=== PATIENT | female | born 1965 | race Caucasian/White ===

== ENCOUNTER → 2019-12-26 13:49 | Outpatient (BNVA) | payer OTHER, SELFPAY | PROVIDERS: PCP Nurse Practitioner Family; Referring Provider Nurse Practitioner Family; Visit Provider Nurse Practitioner | DX: Z76.89 Persons encountering health services in other specified circumstances (principal) ==

== ENCOUNTER 2020-03-06 06:15 | Day surgery (SDC) | payer OTHER, SELFPAY ==
[2020-03-06 06:41] VITALS: BMI 35.9
[2020-03-06 06:45] VITALS: BP 130/81; PULSE 90; RESP 16; TEMP 36.1; O2SAT 95
[2020-03-06] MEDS: Lactated Ringers 1,000 ML 50 ML IVCONT (07:00)
--- NOTE | 2020-03-06 07:16 | HO.ANESPROP2 ---
HPI - Anesthesia Eval Consult details Narrative: Colonoscopy PMFSH Family History Family History Father Family history of high blood pressure Hx of diabetes insipidus Mother No problems noted. Surgical History Surgical History History of colonoscopy Hx of endoscopy Hx of tubal ligation Social History Social History Alcohol intake: current Alcohol intake frequency: holidays/special occasions only Smoking Status: Never smoker Use of substances other than those prescribed or required for medical reasons: No Substance Use Type: Marijuana Advance Directives: No Advance Directives Information Provided: Yes Meds Allergies Allergy/AdvReac Type Severity Reaction Status Date / Time Latex Allergy Unknown Rash/Itchin Uncoded 05/14/19 00:00 ess Home Medications Medication Instructions Recorded Confirmed Type Zyrtec DAILY 03/06/20 History desvenlafaxine succinate 1 tab PO DAILY 03/06/20 03/06/20 History levothyroxine 1 tab PO QAM 03/06/20 03/06/20 History omeprazole 1 cap PO DAILY 03/06/20 03/06/20 History Exam Exam Date and Time: March 06, 2020 0716 Height,Weight and Vital Signs: Height 5 ft 1 in Weight 86.183 kg Last Vital Signs Temp 96.9 F 03/06/20 06:45 Pulse 90 03/06/20 06:45 Resp 16 03/06/20 06:45 BP 130/81 03/06/20 06:45 Pulse Ox 95 03/06/20 06:45 Airway Mallampati Class: III TM Dist: >3cm Neck ROM: Full Loose/Missing/Broken Teeth: No Heart: rrr+s1s2 Lungs: cta b/l Assessment and Plan Assessment Anesthesia Assessment: Anesthesia Plan Discussed and Chart Reviewed Final Anesthetic Review NPO: Yes ASA Class: II Final Preanesthetic Review: No Changes in Pt Med Stat, Meds/Allgs Chart Reviewed and Consent Obtained/Reviewed Patient Risk: Low Procedure Risk: Low Assessment/Block/Sedation in SS: Assess/Block/Sedation-SS Anesthetic Plan Anesthetic Plan: MAC: and Agree w/ Assess. and Plan Disposition: Standard PACU
--- NOTE | 2020-03-06 07:40 | MHC.SHP ---
Pre-Procedural Eval Section B Chief Complaint: Screening Details of Present Illness: colon cancer screening Relevant Family History (Specify if Yes): No Relevant Social History: None Present Medications: see Short Stay Collaborative assessment Medical History: Significant History (GERD, obesity, hypothyroid,anxiety depression) History of Previous Operations: Relevant previous surgery/procedure and date(s) (Bilateral tubal) Allergies: Allergies Allergy/AdvReac Type Severity Reaction Status Date / Time Latex Allergy Unknown Rash/Itchin Uncoded 05/14/19 00:00 ess Review of Systems Sugical H&P ROS: Negative: Constitution, Cardiovascular, Respiratory, Gastrointestinal and Musculoskeletal Exam Surgical H&P Exam: Normal: HEENT, Normal: Heart, Normal: Lungs, Normal: Abdomen and Normal: Skin Plan Diagnosis/Plan: Unchanged I have reviewed the history and physical and performed a pertinent physical examination on my patient. No changes have occurred unless specified.Yes
--- NOTE | 2020-03-06 08:08 | PM.PROC ---
Brief Operative Note Date of procedure: 03/06/20 Pre-op diagnosis: Colon cancer screening Post-op diagnosis: other (Normal exam) Procedure: colonoscopy Anesthesia: MAC (ANTIONE Berrios) Surgeon: Maegan Thomas Estimated blood loss (mL): 0 Pathology: none sent Condition: stable Disposition: PACU
[2020-03-06 08:11] VITALS: BP 97/61; PULSE 87; RESP 16; TEMP 37.1; O2SAT 97
[2020-03-06 08:26] VITALS: BP 113/77; PULSE 80; RESP 17; TEMP 36.7; O2SAT 99
--- NOTE | 2020-03-06 08:57 | HO.POSTANES ---
Post Anesthesia Evaluation Post Anesthesia Evaluation Vital Signs: Vital Signs Temp Pulse Resp BP Pulse Ox 03/06/20 08:26 98.0 F 80 17 113/77 99 03/06/20 08:11 98.8 F 87 16 97/61 97 03/06/20 06:45 96.9 F 90 16 130/81 95 Anesthesia: Monitored Mental Status: Awake Pain Control: Satisfactory Nausea/Vomiting: None Hydration: Adequate Anesthesia-Related Issues: No Anes. Related Issues
--- NOTE | 2020-03-06 09:11 | OP_ITS ---
SURGEON: Maegan Thomas MD PREOPERATIVE DIAGNOSIS: Screening, non-high risk, 10-year interval. POSTOPERATIVE DIAGNOSIS: Normal exam. PROCEDURE PERFORMED: Colonoscopy. ESTIMATED BLOOD LOSS: Non blood loss. COMPLICATIONS: No complications. ANESTHESIA: Monitored. ANESTHESIOLOGIST: Jose Berrios CRNA ASSISTANTS: No construction project assistant. SPECIMENS: Removed, none. PRIMARY CARE PHYSICIAN: Farhad Mendoza NP. FAMILY SERVICE AIDE: Dr. Thomas. CONDITION: Stable. DESCRIPTION OF PROCEDURE: Digital rectal exam revealed sphincter tone to be slightly decreased. Video colonoscope was introduced without difficulty. It was navigated into the rectosigmoid sigmoid on up through descending, transverse, ascending colon down into the cecal cap. Appendiceal orifice was seen. Ileocecal valve was seen. There was minimal residual bilious fluid that was easily flushed and suctioned. No fibrous material was left. Slow rotational views on withdrawal of the scope, no mucosal lesions were appreciated. Anorectal verge was clear. PLAN: Repeat colon cancer screening in this lady will be appropriate in 10 years. This will be asymptomatic. Note, this patient had done a 2-day prep, she did not tolerate the second dose of Suprep. GRAFT OR IMPLANTS: No grafts or implants. Maegan Thomas MD MEN/MODL / [id number] MTDD
== END 2020-03-06 08:56 | disposition home or self-care (01) ==
PROVIDERS: PCP Nurse Practitioner Family; Visit Provider Internal Medicine Gastroenterology
PROC: 0DJD8ZZ Inspection of Lower Intestinal Tract, Via Natural or Artificial Opening Endoscopic (ICD-10-PCS; CPT 45378; principal; 2020-03-06 07:30)
DX: Z12.11 Encounter for screening for malignant neoplasm of colon (principal); K21.9 Gastro-esophageal reflux disease without esophagitis; E03.9 Hypothyroidism, unspecified; Z79.899 Other long term (current) drug therapy; Z98.51 Tubal ligation status; F12.90 Cannabis use, unspecified, uncomplicated; Z91.040 Latex allergy status; F32.9 Major depressive disorder, single episode, unspecified
CPT/HCPCS: 45378

== ENCOUNTER 2022-06-09 08:16 | Outpatient (REF) | payer OTHER, SELFPAY ==
[2022-06-09 11:07] LABS: MANUAL DIFF FLAG NO
[2022-06-09 11:14] LABS: Basophils Absolute Auto 0.1 X10*3/uL (0.0-0.2); Basophils Percent Auto 0.7 % (0-2); Eosinophils Absolute Auto 0.4 X10*3/uL (0.0-0.4); Hematocrit 42.1 % (37.0-47.0); Hemoglobin 13.6 g/dl (12.0-16.0); Imm Gran Abs Auto 0.03 X10*3/uL (0.00-0.03); Imm Gran Pct Auto 0.4 % (0.0-0.4); Lymphocytes Absolute Auto 2.1 X10*3/uL (1.2-4.9); Lymphocytes Percent Auto 27.3 % (20-40); Mean Corpuscular HGB Conc 32.3 g/dl (31.0-35.0); Mean Corpuscular Volume 86.8 fL (80.0-98.0); Mean Platelet Volume 8.9 fL (9.4-12.3); Monocytes Absolute Auto 0.5 X10*3/uL (0.1-1.2); Monocytes Percent Auto 6.4 % (2-11); Neutrophils Absolute Auto 4.6 x10*3/uL (2.0-8.3); Neutrophils Percent Auto 60.2 % (45-73); Platelet Count 360 X10*3/uL (160-400); Red Blood Count 4.85 X10*6/uL (4.20-5.50); Red Cell Distribution Width 13.5 % (11.0-16.0); White Blood Count 7.7 X10*3/uL (4.8-10.8)
[2022-06-09 11:24] LABS: Appearance Urine Turbid; Color Urine Yellow; Glucose Urine UA Negative (Negative); Leukocyte Esterase Urine Negative (Negative); Nitrite Urine Negative (Negative); PH 5.5 (5.0-9.0); Specific Gravity - Urine >= 1.030 (1.005-1.025); Urine Blood Negative (Negative); Urine Ketones Negative (Negative); Urine Protein Negative (Neg-Trace)
[2022-06-09 11:46] LABS: Alanine Aminotransferase 40 U/L (0-31); Albumin Level 4.4 g/dL (3.5-5.0); Alkaline Phosphatase 122 U/L (39-117); Anion Gap 14 (12-20); Aspartate Amino Transferase 27 U/L (5-31); Bilirubin Total 0.4 mg/dL (0.0-1.0); Blood Urea Nitrogen 13 mg/dL (9-16); Calcium 9.6 mg/dL (8.4-10.2); Carbon Dioxide 28 mmol/L (22-29); Chloride 105 mmol/L (96-108); Cholesterol 260 mg/dL; Estimated Glomerular Filt Rate > 60; Glucose Fasting 88 mg/dL (60-99); HDL Cholesterol 40 mg/dL; LDL Cholesterol Calculated 186 mg/dl; Potassium 4.6 mmol/L (3.3-5.1); Sodium 142 mmol/L (135-145); Total Protein 7.3 g/dL (6.5-8.0); Triglycerides 171 mg/dL
[2022-06-09 11:47] LABS: TSH reflex Free T4 1.15 uIU/mL (0.32-4.0); Vitamin D 25-OH Total 64.1 ng/mL (>30)
== END 2022-06-09 08:17 | disposition home or self-care (01) ==
LOC: HO.HMGCLDS 08:16
PROVIDERS: PCP Nurse Practitioner Family; Visit Provider Nurse Practitioner Family
DX: Z00.00 Encounter for general adult medical examination without abnormal findings (principal); E55.9 Vitamin D deficiency, unspecified; R74.8 Abnormal levels of other serum enzymes; E03.9 Hypothyroidism, unspecified
CPT/HCPCS: 36415; 80053; 80061; 81003; 82306; 84443; 85025

== ENCOUNTER 2023-07-26 07:35 | Outpatient (REF) | payer OTHER, SELFPAY ==
[2023-07-26 10:31] LABS: MANUAL DIFF FLAG NO
[2023-07-26 10:47] LABS: Basophils Percent Auto 0.5 % (0-2); Eosinophils Absolute Auto 0.2 X10*3/uL (0.0-0.4); Hematocrit 40.5 % (37.0-47.0); Hemoglobin 13.4 g/dl (12.0-16.0); Imm Gran Abs Auto 0.01 X10*3/uL (0.00-0.03); Imm Gran Pct Auto 0.1 % (0.0-0.4); Lymphocytes Absolute Auto 1.9 X10*3/uL (1.2-4.9); Lymphocytes Percent Auto 24.7 % (20-40); Mean Corpuscular HGB Conc 33.1 g/dl (31.0-35.0); Mean Corpuscular Hemoglobin 28.6 pg (27.0-33.0); Mean Corpuscular Volume 86.5 fL (80.0-98.0); Mean Platelet Volume 9.4 fL (9.4-12.3); Monocytes Absolute Auto 0.5 X10*3/uL (0.1-1.2); Monocytes Percent Auto 6.9 % (2-11); Neutrophils Absolute Auto 4.9 x10*3/uL (2.0-8.3); Neutrophils Percent Auto 65.8 % (45-73); Platelet Count 378 X10*3/uL (160-400); Red Blood Count 4.68 X10*6/uL (4.20-5.50); Red Cell Distribution Width 13.9 % (11.0-16.0); White Blood Count 7.5 X10*3/uL (4.8-10.8)
[2023-07-26 11:44] LABS: Alanine Aminotransferase 29 U/L (0-31); Albumin Level 4.4 g/dL (3.5-5.0); Alkaline Phosphatase 120 U/L (39-117); Anion Gap 15 (12-20); Aspartate Amino Transferase 26 U/L (5-31); Bilirubin Total 0.4 mg/dL (0.0-1.0); Blood Urea Nitrogen 13 mg/dL (9-16); Calcium 10.1 mg/dL (8.4-10.2); Carbon Dioxide 28 mmol/L (22-29); Chloride 105 mmol/L (96-108); Cholesterol 267 mg/dL (<200); Estimated Glomerular Filt Rate > 60; Glucose Fasting 91 mg/dL (60-99); HDL Cholesterol 50 mg/dL (>40); LDL Cholesterol Calculated 193 mg/dL (<100); Potassium 4.7 mmol/L (3.3-5.1); Sodium 143 mmol/L (135-145); TSH reflex Free T4 0.59 uIU/mL (0.32-4.0); Total Protein 7.5 g/dL (6.5-8.0); Triglycerides 124 mg/dL (<150); Vitamin D 25-OH Total 80.3 ng/mL (>30)
[2023-07-30 05:44] LABS: Alk.Phos Iso. Macrohepatic 0 % (<=0); Alk.Phos Isoenzymes Bone 41 % (28-66); Alk.Phos Isoenzymes Intest 0 % (1-24); Alk.Phos Isoenzymes Liver 59 % (25-69); Alk.Phos Isoenzymes Placental 0 % (<=0); Alk.Phos Isoenzymes Total 113 U/L (37-153)
== END 2023-07-26 07:36 | disposition home or self-care (01) ==
LOC: HO.HMGCLDS 07:35
PROVIDERS: PCP Nurse Practitioner Family; Visit Provider Nurse Practitioner Family
DX: Z00.00 Encounter for general adult medical examination without abnormal findings (principal); R74.8 Abnormal levels of other serum enzymes; E55.9 Vitamin D deficiency, unspecified
CPT/HCPCS: 36415; 80053; 80061; 82306; 84080; 84443; 85025

== ENCOUNTER 2023-07-28 08:00 | Outpatient (AMB) | payer OTHER, SELFPAY ==
--- NOTE | 2023-07-28 08:07 | A.OFFPC_ITS ---
Vital Signs 07/28/23 08:09 Height 5 ft 1 in Weight 186 lb BMI 35.1 BP 110/74 Blood Pressure Location Rt brachial Position Sitting Pulse 96 Pulse Source Pulse Oximeter Pulse Oximetry (%) 98 Oxygen Delivery Method Room Air Intake Visit Reasons: Follow up meds Intake Note: Patient here to review recent labs. Allergies Latex Allergy (Unknown, Uncoded 07/28/23 08:10) Rash/Itchiness Medication List - Last Reconciled 07/28/23 by BRIANA Zhou atorvastatin 10 mg PO BEDTIME 90 days cholecalciferol (vitamin D3) 50 mcg PO DAILY desvenlafaxine succinate ER 1 tab PO DAILY levothyroxine 75 mcg PO QAM omeprazole 40 mg PO DAILY [Zyrtec DAILY] Tobacco use date assessed: 07/28/23 Dental Screening Dental Screen Date: 07/28/23 Did you have a dental visit in the last 12 months?: Yes Did you have a dental problem in the last 6 months where you did not have access to dental care?: No Was dental information given to patient?: Patient has dentist HPI Follow up meds HPI Details Dyslipidemia: Pt's last lipids were elevated. Will start atorvastatin 10mg. Hypothyroid: Stable, last TSH was WNL. Pt is taking levothyroxine 75mcg. Denies chest pain, shortness of breath, and dizziness. Pt will schedule her own mammogram. [facility] Medical History Left tubo-ovarian mass Surgical History Hx of tubal ligation Hx of endoscopy History of colonoscopy Family History Father Family history of high blood pressure Hx of diabetes insipidus Mother Substance use disorder Mental health disorder Sister Substance use disorder Mental health disorder Social History Housing: Apartment Alcohol intake: current Alcohol intake frequency: holidays/special occasions only Patient Tobacco Use Status: Never used Tobacco e-Cigarette/Vaping Use: Never Used Second Hand Smoke Exposure: No Substance Use Type: Marijuana service: No Current occupational status: employed Current occupation: [employer] Current occupational exposures/hazards: No Cognitive needs: No Hearing needs: No Vision needs: No Questionnaire PHQ-9 Over the last 2 weeks, how often have you been bothered by any of the following problems? 1. Little interest or pleasure in doing things: not at all 2. Feeling down, depressed, or hopeless: not at all 3. Trouble falling or staying asleep, or sleeping too much: several days 4. Feeling tired or having little energy: several days 5. Poor appetite or overeating: not at all 6. Feeling bad about yourself - or that you are a failure or have let yourself or your family down: not at all 7. Trouble concentrating on things, such as reading the newspaper or watching television: several days 8. Moving or speaking so slowly that other people could have noticed. Or the opposite - being so fidgety or restless that you have been moving around a lot more than usual: not at all 9. Thoughts that you would be better off or of hurting yourself in some way: not at all Total score: 3 Depression Screening Interpretation: Negative Depression Screening Done: Yes 91560 - PHQ-9 Billing: Yes Source: Developed by Drs. Andrew Wright, Marilee Welsh, Checo Sanchez and colleagues, with an educational justin from [employer]. Thrive Questionnaire Date Thrive assessed: 07/28/23 I am a: Patient What is your living situation today?: I have a steady place to live Within the past 12 months, did the food you bought not last and you didn't have the money to get more?: Never true Within the past 12 months, did you worry whether your food would run out before you got money to buy more?: Never true Do you have trouble paying for medicines?: Yes Do you have trouble getting transportation to medical appointments?: No Do you have trouble paying your heating and electricity bill?: No Do you have trouble taking care of your child, family member or friend?: No Do you have trouble with day-to-day activities such as bathing, preparing meals, shopping, managing finances, etc.?: No Are you currently unemployed and looking for a job?: No Are you interested in more education?: No Currently or been in a relationship where the following occur: I choose not to answer this question THRIVE Score: 0 AUDIT C Alcohol Use Questionnaire (AUDIT-C) 1. How often do you have a drink containing alcohol?: Monthly or less 2. How many drinks containing alcohol do you have on a typical day when you are drinking?: 1 or 2 3. How often do you have six or more drinks on one occasion?: Never Total Score: 1 Score Reviewed/Action Taken: No LUIS M-7 AMB Questionnaire LUIS M-7 Date LUIS M - 7 assessed: 07/28/23 Feeling nervous, anxious, or on edge: 1 = Several days Not being able to stop or control worryin = Not at all Worrying too much about different things: 0 = Not at all Trouble relaxin = Several days Being so restless that it is hard to sit still: 0 = Not at all Becoming easily annoyed or irritable: 1 = Several days Feeling afraid as if something awful might happen: 0 = Not at all Total LUIS M-7 score (0-4 normal; 5-9 mild; 10-14 moderate; 15-21 severe): 3 Source: Developed by Drs. Andrew Wright, Marilee Welsh, Checo Sanchez and colleagues, with an educational justin from [employer]. LUIS M-7 Assessment Billing LUIS M-7 Assessment Tool: LUIS M-7 Assessment 41517 Review of Systems Const Reports as per HPI Physical exam (Primary Care) Vital Signs: Last Vital Signs Pulse 96 07/28/23 08:09 BP 110/74 07/28/23 08:09 Pulse Ox 98 07/28/23 08:09 Oxygen Delivery Method Room Air 07/28/23 08:09 BMI result Body Mass Index 35.1 Tobacco/Smoking Status: Tobacco use Status Tobacco use date assessed 06/09/22 07/28/23 08:07 Patient Tobacco Use Status Never used Tobacco 07/28/23 08:07 e-Cigarette/Vaping Use Never Used 07/28/23 08:07 PHQ-9: PHQ-9 Score PHQ-9: Total score 3 07/28/23 08:13 Depression Screening Interpretation: Negative Thrive Assessment: Date of Thrive Assessment Date Thrive assessed 06/09/22 07/28/23 08:07 Currently or been in a relationship where the following occur: I choose not to answer this question Const General: cooperative Nutritional Appearance: obese Orientation/consciousness: patient oriented x3 Resp Effort & Inspection: normal respiratory effort Auscultation: clear to auscultation bilaterally Cardio Rate: regular rate Rhythm: regular rhythm Heart sounds: S1 normal heart sound present and S2 normal heart sound present Neuro General: patient oriented x3 Extrem Right lower extremity: no edema Left lower extremity: no edema Psych Appearance: grossly normal Mental Status: mental status grossly normal Speech and movement: Normal speech and movement present Affect: normal affect Attitude: cooperative Thought process: Normal thought process present Thought content: Normal thought content present Insight: Good insight present (Psych) Judgement: Good judgement present (Psych) Assessment and Plan Assessment & Plan (1) Hypothyroid: Code(s): E03.9 - Hypothyroidism, unspecified Plan: Stable, discussed labs, continue levothyroxine (2) Obesity: Code(s): E66.9 - Obesity, unspecified Plan: Work on diet (3) Dyslipidemia: Code(s): E78.5 - Hyperlipidemia, unspecified Plan: Starting atorvastatin, labs ordered for repeat in approx 2 months. Plan The patient agreed to the use of a medical data analyst for this encounter. Scribed for BREEZY ReneeBC by Lori Tello medical data analyst, on 07/28/2023 at 08:15 EST. Orders: Orders Comprehensive Icard. Panel Fast 2 Months E78.5 - Hyperlipidemia, unspecified Lipid Panel 2 Months E78.5 - Hyperlipidemia, unspecified Medications: New atorvastatin 10 mg PO BEDTIME 90 days 90 tabs 0RF Coding Level of Care Code Est Pt Level 4 (12269) Diagnoses Hypothyroid E03.9 Obesity E66.9 Dyslipidemia E78.5 Additional Codes LUIS M-7 Assessment Billing - LUIS M-7 Assessment Tool: LUIS M-7 Assessment 33060 ([id number])
[2023-07-28 08:09] VITALS: BP 110/74; PULSE 96; O2SAT 98; BMI 35.1
== END 2023-07-28 09:29 | disposition home or self-care (01) ==
PROVIDERS: PCP Nurse Practitioner Family; Visit Provider Nurse Practitioner Family
DX: E03.9 Hypothyroidism, unspecified (principal); E66.9 Obesity, unspecified; E78.5 Hyperlipidemia, unspecified; Z68.35 Body mass index [BMI] 35.0-35.9, adult
CPT/HCPCS: 99214

== ENCOUNTER 2023-10-10 08:22 | Outpatient (REF) | payer OTHER, SELFPAY ==
[2023-10-10 10:56] LABS: Alanine Aminotransferase 27 U/L (0-31); Albumin Level 4.1 g/dL (3.5-5.0); Alkaline Phosphatase 128 U/L (39-117); Anion Gap 13 (12-20); Aspartate Amino Transferase 19 U/L (5-31); Bilirubin Total 0.3 mg/dL (0.0-1.0); Blood Urea Nitrogen 13 mg/dL (9-16); Calcium 9.5 mg/dL (8.4-10.2); Carbon Dioxide 26 mmol/L (22-29); Chloride 107 mmol/L (96-108); Cholesterol 170 mg/dL (<200); Estimated Glomerular Filt Rate > 60; Glucose Fasting 104 mg/dL (60-99); HDL Cholesterol 46 mg/dL (>40); LDL Cholesterol Calculated 97 mg/dL (<100); Potassium 4.9 mmol/L (3.3-5.1); Sodium 141 mmol/L (135-145); Total Protein 7.1 g/dL (6.5-8.0); Triglycerides 136 mg/dL (<150)
== END 2023-10-10 08:23 | disposition home or self-care (01) ==
LOC: HO.HMGCLDS 08:22
PROVIDERS: PCP Nurse Practitioner Family; Visit Provider Nurse Practitioner Family
DX: E78.5 Hyperlipidemia, unspecified (principal)
CPT/HCPCS: 36415; 80053; 80061

== ENCOUNTER 2024-02-01 14:47 | Outpatient (AMB) | payer OTHER, SELFPAY ==
[2024-02-01 14:58] VITALS: BP 122/76; PULSE 90; O2SAT 98; BMI 38.0
--- NOTE | 2024-02-01 14:58 | A.OFFPC_ITS ---
Vital Signs 02/01/24 14:58 Height 5 ft 1 in Weight 201 lb BMI 38.0 BP 122/76 Blood Pressure Location Rt brachial Position Sitting Pulse 90 Pulse Source Pulse Oximeter Pulse Oximetry (%) 98 Intake Visit Reasons: PE Intake Note: pt is here for PE Photography Intern Required: No Accompanied by: Self / Same As Patient Allergies Latex Allergy (Unknown, Uncoded 02/01/24 15:18) Rash/Itchiness Medication List - Last Reconciled 02/01/24 by MARIO Zhou-LEESA atorvastatin 10 mg PO BEDTIME cholecalciferol (vitamin D3) 50 mcg PO DAILY desvenlafaxine succinate ER 1 tab PO DAILY levothyroxine 75 mcg PO QAM omeprazole 40 mg PO DAILY trazodone 50 mg PO DAILY [Zyrtec DAILY] Tobacco use date assessed: 07/28/23 Dental Screening Dental Screen Date: 07/28/23 HPI PE HPI Details History of Present Illness The patient is a 58-year-old female presenting for a wellness visit and routine health PE. 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 Her history includes no smoking of cigarettes, though she mentions occasional use of cannabis in the past. The patient has not experienced significant skin issues currently despite her rosacea, and states that she is generally healthy, citing her ability to sleep well without waking early, and does not feel excessively aged. She sees a irrigation technician regularly and last visited in September or August. A mammogram is overdue as she recently regained health insurance after a job change, she will make her own appt. The patient denies any recent respiratory symptoms like shortness of breath or thoracic pain, and reports no neurological symptoms such as numbness or tingling. Health Maintenance - Colon screening not due until 2030. - Mammogram pending scheduling due to re cent insurance reacquisition. - Patient to schedule english adjunct faculty visi t for rosacea management. 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 - Substance Use: Denies smoking; has use d cannabis intermittently in the past, but not recently. - Lifestyle: Describes herself as not a morning person and prefers nighttime activity. Review of Systems - General: Denies fever, chills, nausea, vomiting. - Neurological: Denies recent headaches, numbness, or tingling. - Respiratory: Denies shortness of breat h or chest pain. - Skin: Reports rosacea; denies other si gnificant skin disturbances. Physical Exam General: Cooperative, healthy appearing, comfortable, no acute distress and well developed, obese Orientation: Patient oriented x3 Limitations: No limitations Head: Normal to inspection Ears: Hearing grossly normal bilaterally Nose: Normal external nose present Face and sinus: Normal facial exam Eyes: Appearance normal, both eyes and all related structures Neck: Normal visual inspection and Yes full ROM Respiratory: Normal respiratory effort and able to speak in complete sentences. Clear to auscultation bilaterally Cardiovascular: Regular rate and rhythm. Normal S1 and S2 GI: Normal to inspection. Soft to palpation and nontender Skin: No rashes or lesions noted, except for rosacea Neuro: Patient oriented x3 Extremities: Normal to inspection Results Plan - Mammogram: Patient instructed to sched ule a mammogram with insurance coverage now regained. - Dermatology: Patient encouraged to ret urn to english adjunct faculty for rosacea management. - Immunizations: Discussed patient's int ent to receive COVID-19 booster. - Health Maintenance: Continue routine w ellness checkups and screenings. Patient was informed and verbally consented to the use of an ambient scribe for clinic note documentation during this visit. Discussion Notes I discussed the importance of completing her mammogram, especially after job changes have delayed her insurance coverage. I validated her plans to reengage with dermatological care for rosacea. We acknowledged her choice regarding the COVID-19 booster and I encouraged her to schedule it appropriately. We discussed her workplace stressors, recognizing her desire to find a more supportive employment setting. Attention was given to her sleep pattern, noting her self- described preference for evening activities and ability to sleep soundly. Patient Instructions - Schedule a mammogram as soon as possib le. - Engage with dermatology care for rosac ea once work and insurance conditions permit. - Plan for and receive the COVID-[address] shot when feasible. - Continue routine annual wellness exams . - Consider employment changes if stress at current job persists, aiming for a healthier work-life balance. [facility] Medical History Left tubo-ovarian mass Surgical History Hx of tubal ligation Hx of endoscopy History of colonoscopy Family History Father Family history of high blood pressure Hx of diabetes insipidus Mother Substance use disorder Mental health disorder Sister Substance use disorder Mental health disorder Social History Housing: Apartment Alcohol intake: current Alcohol intake frequency: holidays/special occasions only Patient Tobacco Use Status: Never used Tobacco e-Cigarette/Vaping Use: Never Used Second Hand Smoke Exposure: No Substance Use Type: Marijuana service: No Current occupational status: employed Current occupation: [employer] Current occupational exposures/hazards: No Cognitive needs: No Hearing needs: No Vision needs: No Questionnaire PHQ-9 Over the last 2 weeks, how often have you been bothered by any of the following problems? 1. Little interest or pleasure in doing things: not at all 2. Feeling down, depressed, or hopeless: not at all 3. Trouble falling or staying asleep, or sleeping too much: not at all 4. Feeling tired or having little energy: not at all 5. Poor appetite or overeating: not at all 6. Feeling bad about yourself - or that you are a failure or have let yourself or your family down: not at all 7. Trouble concentrating on things, such as reading the newspaper or watching television: several days 8. Moving or speaking so slowly that other people could have noticed. Or the opposite - being so fidgety or restless that you have been moving around a lot more than usual: not at all 9. Thoughts that you would be better off or of hurting yourself in some way: not at all Total score: 1 Depression Screening Interpretation: Negative Depression Screening Done: Yes 61628 - PHQ-9 Billing: Yes Source: Developed by Drs. Andrew Wright, Marilee Welsh, Checo Sanchez and colleagues, with an educational justin from [employer]. Thrive Questionnaire Date Thrive assessed: 02/01/24 I am a: Patient What is your living situation today?: I have a steady place to live Within the past 12 months, did the food you bought not last and you didn't have the money to get more?: Never true Within the past 12 months, did you worry whether your food would run out before you got money to buy more?: Never true Do you have trouble paying for medicines?: No Do you have trouble getting transportation to medical appointments?: No Do you have trouble paying your heating and electricity bill?: No Do you have trouble taking care of your child, family member or friend?: No Do you have trouble with day-to-day activities such as bathing, preparing meals, shopping, managing finances, etc.?: No Are you currently unemployed and looking for a job?: No Are you interested in more education?: No Please select the resources that you would like help with: None Currently or been in a relationship where the following occur: No concerns reported THRIVE Score: 0 AUDIT C Alcohol Use Questionnaire (AUDIT-C) 1. How often do you have a drink containing alcohol?: 2-4 times a month 2. How many drinks containing alcohol do you have on a typical day when you are drinking?: 1 or 2 3. How often do you have six or more drinks on one occasion?: Never Total Score: 2 Score Reviewed/Action Taken: Yes LUIS M-7 AMB Questionnaire LUIS M-7 Date LUIS M - 7 assessed: 02/01/24 Feeling nervous, anxious, or on edge: 1 = Several days Not being able to stop or control worryin = Not at all Worrying too much about different things: 0 = Not at all Trouble relaxin = Several days Being so restless that it is hard to sit still: 0 = Not at all Becoming easily annoyed or irritable: 1 = Several days Feeling afraid as if something awful might happen: 0 = Not at all Total LUIS M-7 score (0-4 normal; 5-9 mild; 10-14 moderate; 15-21 severe): 3 Source: Developed by Drs. Andrew Wright, Marilee Welsh, Checo Sanchez and colleagues, with an educational justin from [employer]. LUIS M-7 Assessment Billing LUIS M-7 Assessment Tool: LUIS M-7 Assessment 63926 Physical exam (Primary Care) Vital Signs: Last Vital Signs Pulse 90 12/18/24 14:58 BP 122/76 02/01/24 14:58 Pulse Ox 98 02/01/24 14:58 BMI result Body Mass Index 38.0 Tobacco/Smoking Status: Tobacco use Status Tobacco use date assessed 07/28/23 02/01/24 14:59 Patient Tobacco Use Status Never used Tobacco 02/01/24 14:59 e-Cigarette/Vaping Use Never Used 02/01/24 14:59 PHQ-9: PHQ-9 Score PHQ-9: Total score 1 02/01/24 14:59 Depression Screening Interpretation: Negative Thrive Assessment: Date of Thrive Assessment Date Thrive assessed 02/01/24 02/01/24 14:59 Currently or been in a relationship where the following occur: No concerns reported Coding Level of Care Code Est Pt Prev Care 40-64y(29478) Diagnoses Physical exam Z00. Vitamin D deficiency E55.9 Additional Codes LUIS M-7 Assessment Billing - LUIS M-7 Assessment Tool: LUIS M-7 Assessment 30394 ([id number]) PHQ-9 - 43123 - PHQ-9 Billing: Yes ([id number]) Assessment & Plan Assessment & Plan (1) Physical exam: Code(s): Z00.00 - Encounter for general adult medical examination without abnormal findings Category: Medical (2) Vitamin D deficiency: Code(s): E55.9 - Vitamin D deficiency, unspecified Category: Medical Plan . Orders: Orders Complete Blood Count Auto Diff Today Z00.00 - Encounter for general adult medical examination without abnormal findings UA CC w/rflx Micro + Cult Today Z00.00 - Encounter for general adult medical examination without abnormal findings Lipid Panel Today Z00.00 - Encounter for general adult medical examination without abnormal findings Vitamin D 25-OH Total Today E55.9 - Vitamin D deficiency, unspecified Comprehensive [place]. Panel Fast Today Z00.00 - Encounter for general adult medical examination without abnormal findings TSH reflex Free T4 Today Z00.00 - Encounter for general adult medical examination without abnormal findings
== END 2024-02-01 15:55 | disposition home or self-care (01) ==
PROVIDERS: PCP Nurse Practitioner Family; Visit Provider Nurse Practitioner Family
DX: Z00.00 Encounter for general adult medical examination without abnormal findings (principal); E55.9 Vitamin D deficiency, unspecified

== ENCOUNTER → 2024-02-01 14:47 | Outpatient (BNVA) | payer OTHER, SELFPAY | PROVIDERS: PCP Nurse Practitioner Family; Visit Provider Nurse Practitioner Family | DX: Z00.00 Encounter for general adult medical examination without abnormal findings (principal); E55.9 Vitamin D deficiency, unspecified | CPT/HCPCS: 96127 ==

== ENCOUNTER 2025-01-29 07:54 | Outpatient (REF) | payer BC, SELFPAY ==
--- OUTSIDE RECORDS SUMMARY | 2024-05-11 10:00 | XMS_ITS ---
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 Encounter Location Date Provider Diagnosis [facility] [address] [facility] [address] [place] [address] 05/11/2024 SITA BRISENO Encounter for gynecological examination (general) (routine) without abnormal findings Z01.419 ; Encounter for screening mammogram for malignant neoplasm of breast Z12.31 and Encounter for screening for infections with a predominantly sexual mode of transmission Z11.3 Assessments Encounter Date Diagnosis (ICD Code) Assessment Notes Treatment Notes Treatment Clinical Notes Section Notes 05/11/2024 Encounter for gynecological examination (general) (routine) without abnormal findings (ICD-10 - Z01.419) During the visit, the following areas of concern were addressed: Discussed cervical cancer screening with either cytology alone every 3 years or high risk HPV co-testing every 5 years as per ASCCP guidelines. Advised continued annual pelvic exams. Patient encouraged to increase her level of exercise. SBE technique encouraged/tau ght. Patient reminded when annual mammogram is due. Patient encouraged to keep colon screening up to date. 05/11/2024 Encounter for screening mammogram for malignant neoplasm of breast (ICD-10 - Z12.31) 05/11/2024 Encounter for screening for infections with a predominantly sexual mode of transmission (ICD-10 - Z11.3) Plan Of Treatment Treatment Notes Assessment Notes Encounter for gynecological examination (general) (routine) without abnormal findings During the visit, the following areas of concern were addressed: Discussed cervical cancer screening with either cytology alone every 3 years or high risk HPV co-testing every 5 years as per ASCCP guidelines. Advised continued annual pelvic exams. Patient encouraged to increase her level of exercise. SBE technique encouraged/taught. Patient reminded when annual mammogram is due. Patient encouraged to keep colon screening up to date. 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 Pcp:MILTON SAMPSON M.D Subjective: * Chief Complaints: * 1 . 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 * HPI: C onstitutional: Manuel galan is a 58yo G0 who presents for her yearly investigator welfare exam. She has been in state of good health since her last exam. She has the following concerns: On 03/16/22 - ex-lap, LSO, right salpingectomy, DxC with investigator welfare onc for large left ovarian mass, PMB. Mucinous cystadenoma, weakly proliferative endometrium. She has received the [employer] Covid-19 vaccine. Relationship status: *single. She is not sexually active for the last 14 years. Sexual partner(s): male. She does not wish to have STI testing. She does *not report vaginal dryness. She does not have hot flashes/night sweats, but she runs hot. The patient has *not had an abnormal pap smear within the last 5 years. Her most recent pap smear was 09/13/2019 - NIL, neg HR HPV. Next due for cotesting in 2024. She has not been diagnosed with breast cancer. She does *not have a family history of breast cancer. Her last mammogram was a long time ago - was going to do one, but lost insurance due to job loss. States in 2023 she will get one. She does *not have a family history of colon cancer. She a has had a colonoscopy. The last colonoscopy was Spring 2020. She is to followup in 10 yrs. The patient does* exercise. She exercises daily by wall Pilates and walking . 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 B ladder symptoms d enies. V aginal discharge, unusual d enies. V aginal itch or odor d enies. w eight or appetite changes d enies. C hest pains, SOB d enies. d epression d enies.? B reast: Denies B reast lump. D enies N ipple discharge.? H ematology: Denies S wollen glands. S kin: Patient denies c hanging moles. P sychiatric: Denies A nxiety. * Medical History: Objective: * Vitals: * Examination: G eneral Examination: GENERAL APPEARANCE: i n no acute distress, well developed, well nourished, car cooper present in room. HEAD: n ormocephalic, atraumatic. NECK/THYROID: n krzysztof supple, full range of motion, thyroid normal. LYMPH NODES: n o axillary or supraclavicular adenopathy.? SKIN: normal, good turgor, no rashes, no suspicious lesions. BREASTS: normal, no dimpling, no discharge, no drainage, no masses palpable bilaterally, nontender. ABDOMEN: soft, non-tender, non distended without masses or hepatosplenomegay. RECTAL: normal tone, no masses palpable. BACK: no costovertebral angle tenderness. FEMALE GENITOURINARY: V ulva without lesions or masses, vagina pink without abnormal discharge, lesions or masses, cervix appears normal and is not tender to palpation, uterus is normal size, mobile, nontender and anteverted, right ovary is not palpable, left ovary is surgically absent. NEUROLOGIC: alert and oriented, gait normal. PSYCH: alert, oriented, cognitive function intact, cooperative with exam, good eye contact, mood/affect full range, speech clear. Assessment: * Assessment: 1. E ncounter for gynecological examination (general) (routine) without abnormal findings - Z01.419 (Primary) 2 . E ncounter for screening mammogram for malignant neoplasm of breast - Z12.31 3 . E ncounter for screening for infections with a predominantly sexual mode of transmission - Z11.3 Plan: * Treatment: 2. E ncounter for screening mammogram for malignant neoplasm of breast I maging: MM Digital Screening Mammogram 3D * Follow Up: 1 Year (Reason: Yearly Clothing Supervisor Exam) * Images: Billing Information: * Visit Code: 23789 Preventive Care Est Pt. Age 40-64. * Procedure Codes: * Electronic signature of SITA BRISENO MD on 01/29/2025 at 08:05 AM EST Sign off status: Pending * Provider: Brooks BRISENO MD Date: 0 05/11/2024 Generated for Chuck espinoza/Wai/Elizabethitting on: 1 04/01/2024 08:05 AM EST History and Physical Notes * HPI (History of Present Illness) Category Sub-Category Detail Notes Category Not es Constitutional Stephani is a 58yo G0 who presents for her yearly investigator welfare exam. She has been in state of good health since her last exam. She has the following concerns: On 03/16/22 - ex-lap, LSO, right salpingectomy, DxC with investigator welfare onc for large left ovarian mass, PMB. Mucinous cystadenoma, weakly proliferative endometrium. She has received the [employer] Covid-19 vaccine. Relationship status: *single. She is not sexually active for the last 14 years. Sexual partner(s): male. She does not wish to have STI testing. She does *not report vaginal dryness. She does not have hot flashes/night sweats, but she runs hot. The patient has *not had an abnormal pap smear within the last 5 years. Her most recent pap smear was 09/13/2019 - NIL, neg HR HPV. Next due for cotesting in 2024. She has not been diagnosed with breast cancer. She does *not have a family history of breast cancer. Her last mammogram was a long time ago - was going to do one, but lost insurance due to job loss. States in 2023 she will get one. She does *not have a family history of colon cancer. She a has had a colonoscopy. The last colonoscopy was Spring 2020. She is to followup in 10 yrs. The patient does* exercise. She exercises daily by wall Pilates and walking . Examination Category Sub-Category Detail Notes Category Not es General Examination GENERAL APPEARANCE: in no ac tayo distress, well developed, well nourished, car cooper present in room HEAD: normocephalic, atrau matic NECK/THYROID: neck supple, full ra nge of motion, thyroid normal ABDOMEN: soft, non-tender, no n distended without masses or hepatosplenomegay NEUROLOGIC: alert and oriented, gait normal SKIN: normal, good turgor, no rashes, no suspicious lesions BACK: no costovertebral an gle tenderness BREASTS: normal, no dimpling, no discharge, no drainage, no masses palpable bilaterally, nontender LYMPH NODES: no axillary or supra clavicular adenopathy RECTAL: normal tone, no mass es palpable PSYCH: alert, oriented, cog nitive function intact, cooperative with exam, good eye contact, mood/affect full range, speech clear FEMALE GENITOURINARY: Vulva without lesi ons or masses, vagina pink without abnormal discharge, lesions or masses, cervix appears normal and is not tender to palpation, uterus is normal size, mobile, nontender and anteverted, right ovary is not palpable, left ovary is surgically absent
--- OUTSIDE RECORDS SUMMARY | 2025-01-29 08:05 | XMS_ITS | Patient Health Record ---
Author Organization [facility] Address [address] [place] [address] Care Team Providers Care Home Care Chaplain Name Role Phone MILTON SAMPSON M.D Primary Care Provider Luis Enrique rose BRISENOSITA Unavailable [phone] Allergies Allergen (clinical drug ingredient) Drug/Non Drug Allergy documented on EMR Reaction Allergy Type Onset Date Status Latex Latex rash Allergy Active Results Component Value Reference Range Notes [id number] IGP No Culture 30 Plus Reviewed date:06/21/2024 08:36:28 AM Interpretation: Performing Lab:[facility], [address], [address], [place], Phone - [phone], Director - [facility] Notes/Report: Clinical Information:vaginal/cervical delon [id number] Dates / Results....09/13/2019 No. of containers..01 ThinPrep Vial DIAGNOSIS: OTHER: NEGATIVE FOR SQUAMOUS INTRAEPITHELIAL LESION (NSI). ENDOMETRIAL CELLS ARE PRESENT IN A WOMAN >= 45 YEARS OF AGE. THE SHEDDING OF ENDOMETRIAL CELLS IN GREG-POST MENOPAUSAL WOMEN MAY REPRESENT BENIGN ENDOMETRIAL LESIONS, HORMONAL ALTERATIONS OR UNCOMMONLY, ENDOMETRIAL ABNORMALITIES. THIS SPECIMEN WAS RESCREENED PART OF OUR MATH INSTRUCTOR PROGRAM. Specimen adequacy: Satisfact ory for evaluation. No endocervical component is identified. Clinician provided ICD10: Z0 1.419 Performed by: Tran celaya, Press T[employer] (ASCP) QC reviewed by: Hong denney, Press [employer] (ASCP) . . Note: The Pap smear is a screening test designed to aid in the detection of premalignant and malignant conditions of the uterine cervix. It is not a diagnostic procedure and should not be used as the sole means of detecting cervical cancer. Both false-positive and false-negative reports do occur. . Test Methodology: This liquid based ThinPrep(R) pap test was screened with the use of an image guided system. HPV Aptima Negative Negative This nucleic acid amplification test detects fourteen high-risk HPV types (16,18,31,33,35,39,45,51,52,56,58 ,59,66,68) without differentiation. HPV Genotype Reflex Criteria not met, HPV Genotype not performed. PDF Report Reviewed date:06/26/2024 11:33:07 AM Interpretation: Performing Lab:[facility] [place], [address], [address], [place], Phone - [phone], Director - [facility] Notes/Report: Clinical Information:vaginal/cervical delon [id number] Dates / Results....09/13/2019 No. of containers..01 ThinPrep Vial Reason For Referral No Information Medications Medication SIG (Take, Route, Frequency, Duration) Notes Start Date End Date Status LORazepam 0.5 MG 1 tablet at bedtime as needed Orally Once a day prn Active Omeprazole 40 MG 1 capsule 30 minutes before morning meal Orally Once a day; Duration: 30 day(s) Active Desvenlafaxine ER 100 MG 1 tablet Orally Once a day; Duration: 30 day(s) Active Levothyroxine Sodium 75 MCG 1 tablet in the morning on an empty stomach Orally Once a day; Duration: 30 day(s) Active Vitamin D 50 MCG (2000 UT) 1 tablet Oral ly Once a day; Duration: 30 day(s) Active Atorvastatin Calcium 10 MG 1 tablet Oral ly Once a day Active traZODone HCl Active ZyrTEC Allergy Activ e miSOPROStol 200 MCG as directed Orally 8 -12 hrs prior to appointment; Duration: 1 days 06/21/2024 Active Social History Tobacco Use: Social History Observation Description Date Details (start date - stop date) Never Smoker NA - NA Tobacco Use/Smoking Question Answer Notes Are you a nonsmoker Tobacco use other than smoking: Question Answer Notes Are you an other tobacco user? No AUDIT-C (Standard) Question Answer Notes Did you have a drink contain ing alcohol in the past year? Yes How often did you have a dri nk containing alcohol in the past year? 2 to 4 times a month (2 points) How many drinks did you have on a typical day when you were drinking in the past year? 1 or 2 drinks (0 point) How often did you have six o r more drinks on one occasion in the past year? Never (0 point) Points 2 Interpretation Negative Problems Problem Type SNOMED Code ICD Code Onset Dates Problem Status W/U Status Risk Notes Problem Hypothyroidism (99022816) Unspecified hypothyroidism (244.9) Active confirmed Major Problem Esophageal reflux (047838127) Esophageal reflux (530.81) Active confirmed Major Problem Dysplasia of cervix (08600459) Dysplasia of cervix, unspecified (622.10) Active confirmed Major Problem Postmenopausal bleeding (31188221) Postmenopausal bleeding (627.1) Active confirmed Diag Problem Rosacea (225293329) Rosacea (695.3) Active confirmed Major Problem Gynecological examination normal (035866820966480) Routine gynecological examination (V72.31) Active confirmed Major Vital Signs Temperature 98. degrees Fahrenheit 06/15/2024 Blood pressure diastolic 76 mm Hg 06/15/2024 Height 61 in 06/15/2024 Blood pressure systolic 122 mm Hg 06/15/2024 Weight 197 lbs 06/15/2024 BMI 37.22 kg/m2 06/15/2024 Encounters Encounter Location Date Provider Diagnosis [place] [address] [employer] [address] [address] 06/15/2024 SITA BRISENO Encounter for gynecological examination (general) (routine) without abnormal findings Z01.419 and Encounter for screening mammogram for malignant neoplasm of breast Z12.31 [address] [address] 06/26/2024 SITA BRISENO Unspecified abnormal cytological findings in specimens from cervix uteri R87.619 [place] [address] [employer] [address] [address] 06/21/2024 SITA BRISENO [place] [address] [address] 06/26/2024 SITA BRISENO Assessments Encounter Date Diagnosis (ICD Code) Assessment Notes Treatment Notes Treatment Clinical Notes Section Notes 06/15/2024 Encounter for gynecological examination (general) (routine) without [...] to keep colon screening up to date. 06/15/2024 Encounter for screening mammogram for malignant neoplasm of breast (ICD-10 - Z12.31) 06/26/2024 Unspecified abnormal cytological findings in specimens from cervix uteri (ICD-10 - R87.619) Procedure terminated - will refer for surgical consult Plan Of Treatment Pending Test Test Name Order Date Sonohysterogram 02/25/2022 ULTRASOUND: PELVIC W/TRANSVAGINAL 2022 MM Digital Screening Mammogram 3D 2023 MM Digital Screening Mammogram 3D 2024 MM Digital Screening Mammogram 3D 2022 MM Digital Screening Mammogram 3D 2019 MM Digital Screening Mammogram 3D 2020 MM Digital Screening Mammogram 3D 2021 Next Appt Details Provider Name:SITA Carl, 06/21/2025 01:00:00 PM, [address] [facility], [address], [place], [address], Insurance Providers Payer Name Payer Address Payer Phone Subscriber Number Group Number Insured Name Patient Relationship to Insured Coverage Start Date Coverage End Date [employer] [place] [address] [place] [address] [id number] STEPHANI MASON Self - patient is the insured Medical (General) History Medical History History ICD Code Hypothyroidism, unspecified E03.9 Major depressive disorder, recurrent, mi ld F33.0 Gastro-esophageal reflux disease with es ophagitis K21.0 Anxiety disorder, unspecified F41.9 Surgical History Surgery Date(Month/Year) LASER FOR MILD DYSPLASIA - late 20's TUBAL LIGATION AGE 32 ex-lap, LSO, right salpingec Annabel pedro. Mucinous cystadenoma, weakly proliferative endometrium 03/16/22 Hospitalization History Reason Date(Month/Year) See surgical history 03/16/22
[2025-01-29 10:30] LABS: MANUAL DIFF FLAG NO
[2025-01-29 10:43] LABS: Hematocrit 41.9 % (37.0-47.0); Hemoglobin 13.5 g/dl (12.0-16.0); Imm Gran Abs Auto 0.02 X10*3/uL (0.00-0.03); Imm Gran Pct Auto 0.2 % (0.0-0.4); Lymphocytes Absolute Auto 2.2 X10*3/uL (1.2-4.9); Mean Corpuscular HGB Conc 32.2 g/dl (31.0-35.0); Mean Corpuscular Hemoglobin 28.4 pg (27.0-33.0); Mean Corpuscular Volume 88.0 fL (80.0-98.0); NRBC Abs Auto 0.000 X10*3/uL (0.0-0.012); NRBC Pct Auto 0.0 /100WBC (0.0-0.2); Platelet Count 350 X10*3/uL (160-400); Red Blood Count 4.76 X10*6/uL (4.20-5.50); White Blood Count 9.1 X10*3/uL (4.8-10.8)
[2025-01-29 12:02] LABS: Alanine Aminotransferase 43 U/L (0-31); Albumin Level 4.5 g/dL (3.5-5.0); Alkaline Phosphatase 135 U/L (39-117); Anion Gap 14 (12-20); Aspartate Amino Transferase 37 U/L (5-31); Blood Urea Nitrogen 14 mg/dL (9-16); Calcium 9.7 mg/dL (8.4-10.2); Carbon Dioxide 28 mmol/L (22-29); Chloride 106 mmol/L (96-108); Cholesterol 165 mg/dL (<200); Estimated Glomerular Filt Rate > 60; HDL Cholesterol 42 mg/dL (>40); Potassium 4.7 mmol/L (3.3-5.1); Sodium 143 mmol/L (135-145); Total Protein 7.3 g/dL (6.5-8.0); Triglycerides 122 mg/dL (<150)
[2025-01-29 12:40] LABS: Free T4 (Free Thyroxine) 1.03 ng/dL (0.71-1.85)
== END 2025-01-29 07:55 | disposition home or self-care (01) ==
LOC: HO.HMGCLDS 07:54
PROVIDERS: PCP Nurse Practitioner Family; Visit Provider Nurse Practitioner Family
DX: Z00.00 Encounter for general adult medical examination without abnormal findings (principal); E55.9 Vitamin D deficiency, unspecified; Z13.29 Encounter for screening for other suspected endocrine disorder; Z13.6 Encounter for screening for cardiovascular disorders
CPT/HCPCS: 36415; 80053; 80061; 82306; 84439; 84443; 85025

== ENCOUNTER 2025-02-05 15:04 | Outpatient (AMB) | payer BC, SELFPAY ==
--- OUTSIDE RECORDS SUMMARY | 2024-05-11 10:00 | XMS_ITS ---
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 She has been in state of good health since her last exam. 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 [...] and walking . 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 [...] no acute distress, well developed, well nourished, dip stand loader present in room. HEAD: n ormocephalic, atraumatic. [...] * Follow Up: 1 Year (Reason: Yearly Water Vessel Captain Exam) * Images: Billing Information: * Visit Code: 05075 Preventive Care Est Pt. Age 40-64. 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 She has been in state of good health since her last exam. 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 Mucinous cystadenoma, weakly proliferative endometrium. She has received the [employer] Covid-19 vaccine. Relationship status: *single. She is [...] ac tayo distress, well developed, well nourished, dip stand loader present in room HEAD: normocephalic, atrau matic [...]
[2025-02-05 15:11] VITALS: BP 122/78; PULSE 91; O2SAT 98; BMI 37.4
--- NOTE | 2025-02-05 15:11 | A.OFFPC_ITS ---
Vital Signs 02/05/25 15:11 Height 5 ft 1 in Weight 198 lb BMI 37.4 BP 122/78 Blood Pressure Location Lt brachial Position Sitting Pulse 91 Pulse Source Pulse Oximeter Pulse Oximetry (%) 98 Intake Visit Reasons: PE Allergies Latex Allergy (Unknown, Uncoded 02/05/25 15:11) Rash/Itchiness Medication List - Last Reconciled 02/05/25 by MARIO Zhou-LEESA atorvastatin 10 mg PO BEDTIME cholecalciferol (vitamin D3) 50 mcg PO DAILY desvenlafaxine succinate ER 1 tab PO DAILY levothyroxine 75 mcg PO QAM lorazepam 0.5 mg PO DAILY PRN omeprazole 40 mg PO DAILY trazodone 50 mg PO BEDTIME [Zyrtec DAILY] Tobacco use date assessed: 02/05/25 Dental Screening Dental Screen Date: 02/05/25 Did you have a dental visit in the last 12 months?: Yes Did you have a dental problem in the last 6 months where you did not have access to dental care?: No Was dental information given to patient?: Patient has dentist HPI PE HPI Details History of Present Illness The patient is a 59 year old female presenting for a physical exam. She reports doing quite well overall. Her medical history includes rosacea, for which she sees a software configuration analyst on a yearly basis. 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 Her colon screening is up to date. Recent lab work showed slightly abnormal thyroid function and a slightly elevated alkaline phosphatase. Health Maintenance The patient will schedule a mammogram and will get the shingles vaccination in the near future. She will continue with her regular DRY ICE MAKER visits. Social History Review of Systems - Cardiovascular: Denies chest pain or s hortness of breath. - Gastrointestinal: Denies abdominal hari n, blood in stool, constipation, or diarrhea. - Psychiatric: Denies suicidal ideation or homicidal ideation. Physical Exam General: Cooperative, healthy appearing, comfortable, no acute distress and well developed, obese Orientation: Patient oriented x3 Limitations: No limitations Head: Normal to inspection Ears: Hearing grossly normal bilaterally Nose: Normal external nose present Face and sinus: Normal facial exam Eyes: Appearance normal, both eyes and all related structures Neck: Normal visual inspection and Yes full ROM Respiratory: Normal respiratory effort and able to speak in complete sentences. Clear to auscultation bilaterally Cardiovascular: Regular rate and rhythm. Normal S1 and S2 GI: Normal to inspection. Soft to palpation and nontender Skin: faint Rosacea noted Neuro: Patient oriented x3 Extremities: Normal to inspection Results - Labs: Thyroid function was slightly of f. - Labs: Alkaline phosphatase was slightl y elevated. Plan Patient was informed and verbally consented to the use of an ambient scribe for clinic note documentation during this visit. 1. Abnormal Thyroid Function Recent labs revealed a slightly abnormal thyroid function. A repeat thyroid function test will be performed. 2. Elevated Alkaline Phosphatase Recent labs showed a slightly elevated alkaline phosphatase level. Further investigation will be done with an alkaline phosphatase isoenzyme breakdown with a GGT lab test. 3. Rosacea The patient has a history of rosacea and will continue to see a software configuration analyst on a yearly basis. 4. Obesity The patient is obese. 5. Encounter for general adult medical e xamination with abnormal findings Z00.01 Discussion Notes I reviewed the patient's recent lab work, which she had performed prior to the visit. I discussed that her thyroid function was slightly off, and we will repeat that. Additionally, her alkaline phosphatase was slightly elevated, and I will order an isoenzyme breakdown with GGT for further evaluation. We discussed health maintenance, confirming her colon screening is up to date. She will schedule a mammogram and plans to get the shingles vaccination soon. I noted that she will continue her regular follow-ups with her DRY ICE MAKER, software configuration analyst, and psychiatrist BALJIT. Patient Instructions - Please schedule your mammogram. - Please get the shingles vaccination. - We will be ordering additional lab massimo ts to check your thyroid and liver enzyme levels. - Continue your regular appointments wit h your DRY ICE MAKER and software configuration analyst. [facility] Medical History Left tubo-ovarian mass Surgical History Hx of tubal ligation Hx of endoscopy History of colonoscopy Family History Father Family history of high blood pressure Hx of diabetes insipidus Mother Substance use disorder Mental health disorder Sister Substance use disorder Mental health disorder Social History Housing: Apartment Alcohol intake: current Alcohol intake frequency: holidays/special occasions only Patient Tobacco Use Status: Never used Tobacco e-Cigarette/Vaping Use: Never Used Second Hand Smoke Exposure: No Substance Use Type: Marijuana service: No Current occupational status: employed Current occupation: [employer] Current occupational exposures/hazards: No Cognitive needs: No Hearing needs: No Vision needs: No Questionnaire PHQ-9 Over the last 2 weeks, how often have you been bothered by any of the following problems? 1. Little interest or pleasure in doing things: not at all 2. Feeling down, depressed, or hopeless: not at all 3. Trouble falling or staying asleep, or sleeping too much: not at all 4. Feeling tired or having little energy: not at all 5. Poor appetite or overeating: not at all 6. Feeling bad about yourself - or that you are a failure or have let yourself or your family down: not at all 7. Trouble concentrating on things, such as reading the newspaper or watching television: not at all 8. Moving or speaking so slowly that other people could have noticed. Or the opposite - being so fidgety or restless that you have been moving around a lot more than usual: not at all 9. Thoughts that you would be better off or of hurting yourself in some way: not at all Total score: 0 Depression Screening Interpretation: Negative Depression Screening Done: Yes 80025 - PHQ-9 Billing: Yes Source: Developed by Drs. Andrew Wright, Marilee Welsh, Checo Sanchez and colleagues, with an educational justin from [employer]. Thrive Questionnaire Date Thrive assessed: 02/05/25 I am a: Patient What is your living situation today?: I have a steady place to live Within the past 12 months, did the food you bought not last and you didn't have the money to get more?: Never true Within the past 12 months, did you worry whether your food would run out before you got money to buy more?: Never true Do you have trouble paying for medicines?: No Do you have trouble getting transportation to medical appointments?: No Do you have trouble paying your heating and electricity bill?: No Do you have trouble taking care of your child, family member or friend?: No Do you have trouble with day-to-day activities such as bathing, preparing meals, shopping, managing finances, etc.?: No Are you currently unemployed and looking for a job?: No Are you interested in more education?: No Please select the resources that you would like help with: None Currently or been in a relationship where the following occur: No concerns reported THRIVE Score: 0 AUDIT C Alcohol Use Questionnaire (AUDIT-C) 1. How often do you have a drink containing alcohol?: 2-4 times a month 2. How many drinks containing alcohol do you have on a typical day when you are drinking?: 1 or 2 3. How often do you have six or more drinks on one occasion?: Never Total Score: 2 Score Reviewed/Action Taken: Yes LUIS M-7 AMB Questionnaire LUIS M-7 Date LUIS M - 7 assessed: 02/05/25 Feeling nervous, anxious, or on edge: 0 = Not at all Not being able to stop or control worryin = Not at all Worrying too much about different things: 0 = Not at all Trouble relaxin = Not at all Being so restless that it is hard to sit still: 0 = Not at all Becoming easily annoyed or irritable: 0 = Not at all Feeling afraid as if something awful might happen: 0 = Not at all Total LUIS M-7 score (0-4 normal; 5-9 mild; 10-14 moderate; 15-21 severe): 0 Source: Developed by Drs. Andrew Wright, Marilee Welsh, Checo Sanchez and colleagues, with an educational justin from [employer]. LUIS M-7 Assessment Billing LUIS M-7 Assessment Tool: LUIS M-7 Assessment 83696 Physical exam (Primary Care) Vital Signs: Last Vital Signs Pulse 91 02/05/25 15:11 BP 122/78 02/05/25 15:11 Pulse Ox 98 02/05/25 15:11 BMI result Body Mass Index 37.4 Tobacco/Smoking Status: Tobacco use Status Tobacco use date assessed 02/05/25 02/05/25 15:14 Patient Tobacco Use Status Never used Tobacco 02/05/25 15:14 e-Cigarette/Vaping Use Never Used 02/05/25 15:14 PHQ-9: PHQ-9 Score PHQ-9: Total score 0 02/05/25 15:14 Depression Screening Interpretation: Negative Thrive Assessment: Date of Thrive Assessment Date Thrive assessed 02/05/25 02/05/25 15:14 Currently or been in a relationship where the following occur: No concerns reported Coding Level of Care Code Est Pt Level 3 (12362) Est Pt Prev Care 40-64y(14423) Diagnoses Elevated alkaline phosphatase level R74.8 Elevated liver enzymes R74.8 Hypothyroid E03.9 Encounter for routine adult physical exam with abnormal findings Z00.01 Additional Codes LUIS M-7 Assessment Billing - LUIS M-7 Assessment Tool: LUIS M-7 Assessment 95238 ([id number]) PHQ-9 - 69061 - PHQ-9 Billing: Yes ([id number]) Assessment & Plan Assessment & Plan (1) Elevated alkaline phosphatase level: Code(s): R74.8 - Abnormal levels of other serum enzymes Category: Medical (2) Elevated liver enzymes: Code(s): R74.8 - Abnormal levels of other serum enzymes Category: Medical (3) Hypothyroid: Code(s): E03.9 - Hypothyroidism, unspecified Category: Medical (4) Encounter for routine adult physical exam with abnormal findings: Code(s): Z00.01 - Encounter for general adult medical examination with abnormal findings Category: Medical Plan . Orders: Orders Alkaline Phosphatase Isoenzyme Today R74.8 - Abnormal levels of other serum enzymes Hepatitis A,B,C Profile Today R74.8 - Abnormal levels of other serum enzymes TSH reflex Free T4 Today E03.9 - Hypothyroidism, unspecified Gamma Glutamyl Transpeptidase Today R74.8 - Abnormal levels of other serum enzymes Comprehensive Met. Panel Today R74.8 - Abnormal levels of other serum enzymes
--- OUTSIDE RECORDS SUMMARY | 2025-02-05 16:22 | XMS_ITS | Patient Health Record ---
Author Organization [facility] Address [address] [place] [address] Care Team Providers Care Digital Media Director Name Role Phone MILTON SAMPSON M.D Primary Care Provider Luis Enrique rose BRISENOSITA Unavailable [phone] Allergies Allergen (clinical drug ingredient) Drug/Non Drug Allergy documented on EMR Reaction Allergy Type Onset Date Status Latex Latex rash Allergy Active Results Component Value Reference Range Notes [id number] IGP No Culture 30 Plus Reviewed date:06/21/2024 08:36:28 AM Interpretation: Performing Lab:[facility], Zane Aguila, [address], [place], Phone - [phone], Director - [facility] Notes/Report: Clinical Information:vaginal/cervical delon [id number] Dates / Results....09/13/2019 No. of containers..01 ThinPrep Vial DIAGNOSIS: OTHER: NEGATIVE FOR SQUAMOUS INTRAEPITHELIAL LESION (NSI). ENDOMETRIAL CELLS ARE PRESENT IN A WOMAN >= 45 YEARS OF AGE. THE SHEDDING OF ENDOMETRIAL CELLS IN GREG-POST MENOPAUSAL WOMEN MAY REPRESENT BENIGN ENDOMETRIAL LESIONS, HORMONAL ALTERATIONS OR UNCOMMONLY, ENDOMETRIAL ABNORMALITIES. THIS SPECIMEN WAS RESCREENED PART OF OUR GARMENT EXAMINER PROGRAM. Specimen adequacy: Satisfact ory for evaluation. No endocervical component is identified. Clinician provided ICD10: Z0 1.419 Performed by: Tran celaya, Rollout Manager (ASCP) QC reviewed by: Hong denney, Rollout Manager (ASCP) . . Note: The Pap smear [...] Zane Aguila, [address], [place], Phone - [phone], Director - [facility] Notes/Report: Clinical Information:vaginal/cervical delon [id number] Dates / Results....09/13/2019 No. of containers..01 ThinPrep [...] Status W/U Status Risk Notes Problem Hypothyroidism (64951494) Unspecified hypothyroidism (244.9) Active confirmed Major Problem Esophageal reflux (485641468) Esophageal reflux (530.81) Active confirmed Major Problem Dysplasia of cervix (80297688) Dysplasia of cervix, unspecified (622.10) Active confirmed Major Problem Postmenopausal bleeding (54695460) Postmenopausal bleeding (627.1) Active confirmed Diag Problem Rosacea (346787226) Rosacea (695.3) Active confirmed Major Problem Gynecological examination normal (506929450744788) Routine gynecological examination (V72.31) Active confirmed Major Vital Signs Temperature 98. degrees Fahrenheit 06/15/2024 Blood pressure diastolic 76 mm Hg 06/15/2024 Height 61 in 06/15/2024 Blood pressure systolic 122 mm Hg 06/15/2024 Weight 197 lbs 06/15/2024 BMI 37.22 kg/m2 06/15/2024 Encounters Encounter Location Date Provider Diagnosis [place] [address] [employer] [address] [address] 06/15/2024 SITA BRISENO Encounter for gynecological examination (general) (routine) without abnormal findings Z01.419 and Encounter for screening mammogram for malignant neoplasm of breast Z12.31 [address] [address] 06/26/2024 SITA BRISENO Unspecified abnormal cytological findings in specimens from cervix uteri R87.619 [place] [address] [employer] [address] [address] 06/21/2024 SITA BRISENO [place] [address] [address] [address] 06/26/2024 SITA BRISNEO Assessments Encounter Date Diagnosis (ICD Code) Assessment [...] Provider Name:SITA Carl, 06/21/2025 01:00:00 PM, [address] [facility], [address], [place], [address], Insurance Providers Payer Name Payer Address Payer Phone Subscriber Number Group Number Insured Name Patient Relationship to Insured Coverage Start Date Coverage End Date [employer] [place] [address] [place] [address] [id number] STEPHANI MASON Self - patient is the [...]
== END 2025-02-05 16:05 | disposition home or self-care (01) ==
LOC: HO.HMCC 15:05
PROVIDERS: PCP Nurse Practitioner Family; Visit Provider Nurse Practitioner Family
DX: Z00.01 Encounter for general adult medical examination with abnormal findings (principal); R74.01 Elevation of levels of liver transaminase levels; E03.9 Hypothyroidism, unspecified

== ENCOUNTER → 2025-02-05 15:04 | Outpatient (BNVA) | payer BC, SELFPAY | PROVIDERS: PCP Nurse Practitioner Family; Visit Provider Nurse Practitioner Family | DX: Z13.31 Encounter for screening for depression (principal); Z13.39 Encounter for screening examination for other mental health and behavioral disorders | CPT/HCPCS: 96127 ==